=== PATIENT | male | born 1970 | race Caucasian/White ===

== ENCOUNTER 2017-03-05 22:21 | Inpatient (IN) | payer SELFPAY ==
[~2017-03-05] VITALS: Ht 157.5 cm; Wt 70.0 kg
[~2017-03-05 22:21] MED LIST: CIPR500T4 PO; METR500T PO
[2017-03-06] VITALS (12 sets, daily range): BP systolic 113–132; BP diastolic 76–89; PULSE 40–66; RESP 15–20; TEMP 97.6; Ht 157.5 cm; Wt 70.0 kg
[2017-03-06 01:08] LABS: ADD SCAN DIFF NO
[2017-03-06 01:12] LABS: BASOPHILS % 0.3 % (0.0-2.0); EOSINOPHILS % 0.6 % (0.0-7.0); HEMATOCRIT 42.1 % (42.0-52.0); HEMOGLOBIN 14.7 g/dl (14.0-18.0); LYMPHOCYTES # 1.4 10^3/ul (0.8-2.9); LYMPHOCYTES % 19.8 % (15.0-51.0); MEAN CORPUSCULAR HEMOGLOBIN 31.4 pg (29.0-33.0); MEAN CORPUSCULAR HGB CONC 34.9 g/dl (32.0-37.0); MEAN PLATELET VOLUME 10.7 fl (7.4-10.4); MONOCYTE # 0.6 10^3/ul (0.3-0.9); MONOCYTES % 8.4 % (0.0-11.0); NEUTROPHIL # 4.8 10^3/ul (1.6-7.5); NEUTROPHILS % 70.3 % (39.0-77.0); PLATELET COUNT 187 10^3/UL (140-415); RED BLOOD COUNT 4.68 10^6/ul (4.70-6.10); RED CELL DISTRIBUTION WIDTH 13.7 % (11.5-14.5); WHITE BLOOD COUNT 6.8 10^3/ul (4.8-10.8)
--- NOTE | 2017-03-06 01:13 | RADRPT ---
PROCEDURE: CT Head without. CLINICAL INDICATION: Possible stroke. TECHNIQUE: The study was performed utilizing a multi-slice, multidetector CT scanner. Direct spira l 1 mm axial sections were obtained through the head without the use of intravenous contrast materia l. 1 or more of the following dose reduction techniques were utilized: Automated exposure control, adjustment of the mA and/or kV according to patient's size, iterative reconstruction technique. Co henry and sagittal reformations were obtained. The images were reviewed on a PACS workstation. RADIATION DOSE: CTDIvol: 43.6 mGyDLP: 720.2 mGy-cm COMPARISON: No prior studies are available for comparison. FINDINGS: There is no intracranial hemorrhage, extra-axial fluid collection, mass lesion, midline shift or hyd rocephalus. The ventricles, sulci and cisterns are within normal limits. The white matter is unrem arkable. The coyle-white matter differentiation is preserved. The basal cisterns are patent. The m idline structures are intact. The orbits, calvarium and extracranial soft tissues are normal in wyatt earance. The visualized paranasal sinuses, mastoid air cells and middle ear cavities are normally ae rated. IMPRESSION: 1. No CT evidence of infarct at this time. If clinical concern for infarct, MRI is recommended for further evaluation. 2. No acute intracranial abnormality. No intracranial hemorrhage, extra-axial fluid collection, ma ss lesion or hydrocephalous. RPTAT: HGAS .Al Barrientos MD, Date Time Electronically viewed and signed by .Al Barrientos MD, on 03/06/2017 01:12 .S/
[2017-03-06 01:23] LABS: ADD UMIC YES; URINE BILIRUBIN (Dip) NEGATIVE (NEGATIVE); URINE BLOOD (Dip) 1+ (NEGATIVE); URINE COLOR LT. YELLOW (YELLOW); URINE GLUCOSE (Dip) NEGATIVE (NEGATIVE); URINE KETONES (Dip) NEGATIVE (NEGATIVE); URINE LEUKOCYTE ESTERASE (Dip) NEGATIVE (NEGATIVE); URINE NITRITE (Dip) NEGATIVE (NEGATIVE); URINE TOTAL PROTEIN (Dip) NEGATIVE (NEGATIVE); URINE UROBILINOGEN (Dip) 0.2 E.U./dL (0.1-1.0)
[2017-03-06 01:31] LABS: ANION GAP 13 (8-16); BLOOD UREA NITROGEN 25 mg/dl (7-20); CALCIUM 9.8 mg/dl (8.4-10.2); CARBON DIOXIDE 29 mmol/L (21-31); CHLORIDE 101 mmol/L (97-110); CREATININE 0.99 mg/dl (0.61-1.24); GLUCOSE 102 mg/dl (70-220); POTASSIUM 4.1 mmol/L (3.5-5.1); SODIUM 139 mmol/L (135-144)
[2017-03-06 01:46] LABS: INR 1.01; PROTIME 13.3 Sec (12.2-14.2)
[2017-03-06 01:48] LABS: CANNABINOIDS Positive (NEGATIVE)
[2017-03-06 01:51] LABS: TROPONIN-I < 0.012 ng/ml (0.00-0.12)
[2017-03-06] MEDS ORDERED: ASPIRIN 81 MG TAB ONE (01:56)
[2017-03-06 01:59] LABS: BARBITURATES Negative (NEGATIVE); BENZODIAZEPINES Negative (NEGATIVE); COCAINE Negative (NEGATIVE); OPIATES Negative (NEGATIVE)
[2017-03-06] MEDS ORDERED: ASPIRIN 81 MG TAB PO ONE (02:00)
--- NOTE | 2017-03-06 02:30 | RADRPT ---
PROCEDURE: Portable chest x-ray. CLINICAL INDICATION: Stroke. TECHNIQUE: Portable AP view of the chest. COMPARISON: None. FINDINGS: No pulmonary edema or conolidation is identified. The cardiac silhouette is magnified. No pleural effusion is seen. There is no pneumothorax. IMPRESSION: 1. No evidence of acute cardiopulmonary disease. RPTAT: HTAR .Wyatt Plunkett MD, MD Date Time Electronically viewed and signed by .Wyatt Plunkett MD, on 03/06/2017 02:29 .R/
[2017-03-06] MEDS ORDERED: ACETAMINOPHEN 325 MG TAB PO PRN (05:00)
[2017-03-06] MEDS ORDERED: ONDANSETRON 4 MG INJ IV PRN (05:00)
--- NOTE | 2017-03-06 05:08 | ERA ---
ER Documentation Chief Complaint Date/Time DATE: 03/06/17 TIME: 04:55 Chief Complaint had an anxiety attack at work stated "he couldnt talk/ react for few mins" HPI This 47-year-old male presents to the emergency room for recurrent concerning episode where he was sitting at work when he suddenly became confused and was completely unable to speak for approximately 2 minutes. At this time he also had a inability to move his left arm. Once she was able to speak and he still felt very confused. His left arm weakness and speech all resolved. Currently he has no symptoms except first feeling somewhat dizzy as in vertigo.. He has no history of stroke hypertension, diabetes or seizures. He had no chest pain or shortness of breath. ROS All systems reviewed and are negative except as per history of present illness. Medications Home Meds Active Scripts Metronidazole* (Flagyl*) 500 Mg Tablet, 500 MG PO TID for 10 Days, TAB Prov:OLIVE SANDERSON NP 07/04/16 Ciprofloxacin Hcl* (Ciprofloxacin Hcl*) 500 Mg Tablet, 500 MG PO BID, #10 TAB Prov:OLIVE SANDERSON NP 07/04/16 Allergies Allergies: Coded Allergies: No Known Allergy (Unverified , 07/03/16) PMhx/Soc History of Surgery: No Hx Miscellaneous Medical Probl: Yes (hypothyroidism) Hx Alcohol Use: Yes (social) Hx Substance Use: No Hx Tobacco Use: Yes (e-cig) Smoking Status: Current every day smoker Physical Exam Vitals Vital Signs Date Time Temp Pulse Resp B/P Pulse Ox O2 Delivery O2 Flow Rate FiO2 03/06/17 04:00 62 16 126/86 99 03/06/17 03:00 56 18 125/84 96 Nasal Cannula 2.0 03/06/17 02:00 59 17 125/80 99 Nasal Cannula 03/06/17 01:00 64 18 140/90 99 Nasal Cannula 03/06/17 00:30 63 19 120/85 94 Room Air 03/05/17 22:32 98.2 82 20 159/88 97 Physical Exam Const: [] No distress Head: Atraumatic Eyes: Normal Conjunctiva, EOMI, PERRLA ENT: Normal External Ears, Nose and Mouth. Neck: Full range of motion..~ No meningismus. Resp: Clear to auscultation bilaterally Cardio: Regular rate and rhythm, no murmurs Abd: Soft, non tender, non distended. Normal bowel sounds Skin: No petechiae or rashes Back: No midline or flank tenderness Ext: No cyanosis, or edema Neur: Awake and alert and oriented 3, cranial nerves II through XII intact, no cerebellar deficits, normal gait, 5 strength all extremities. NIH stroke scale score equals 0 Psych: Normal Mood and Affect Result Diagram: 03/06/17 0030 03/06/17 0030 Results 24 hrs Laboratory Tests Test 03/06/17 00:30 03/06/17 01:07 White Blood Count 6.810^3/ul Red Blood Count 4.6810^6/ul Hemoglobin 14.7g/dl Hematocrit 42.1% Mean Corpuscular Volume 90.0fl Mean Corpuscular Hemoglobin 31.4pg Mean Corpuscular Hemoglobin Concent 34.9g/dl Red Cell Distribution Width 13.7% Platelet Count 20101^3/UL Mean Platelet Volume 10.7fl Neutrophils % 70.3% Lymphocytes % 19.8% Monocytes % 8.4% Eosinophils % 0.6% Basophils % 0.3% Nucleated Red Blood Cells % 0.0/100WBC Neutrophils # 4.810^3/ul Lymphocytes # 1.410^3/ul Monocytes # 0.610^3/ul Eosinophils # 0.010^3/ul Basophils # 0.010^3/ul Nucleated Red Blood Cells # 0.010^3/ul Prothrombin Time 13.3Sec Prothrombin Time Ratio 1.0 INR International Normalized Ratio 1.01 Activated Partial Thromboplast Time 30.0Sec Urine Color LT. YELLOW Urine Clarity CLEAR Urine pH 7.0 Urine Specific [place] 1.010 Urine Ketones NEGATIVE Urine Nitrite NEGATIVE Urine Bilirubin NEGATIVE Urine Urobilinogen 0.2 E.U./dL Urine Leukocyte Esterase NEGATIVE Urine Microscopic RBC 2-5/HPF Urine Microscopic WBC NONE SEEN/HPF Urine Hemoglobin 1+ Urine Glucose NEGATIVE% Urine Total Protein NEGATIVE Sodium Level 139mmol/L Potassium Level 4.1mmol/L Chloride Level 101mmol/L Carbon Dioxide Level 29mmol/L Anion Gap 13 Blood Urea Nitrogen 25mg/dl Creatinine 0.99mg/dl Glucose Level 102mg/dl Hemoglobin A1c 4.8% Calcium Level 9.8mg/dl Troponin I < 0.012ng/ml Urine Opiates Screen Negative Urine Barbiturates Negative Urine Amphetamines Screen Negative Urine Benzodiazepines Screen Negative Urine Cocaine Screen Negative Urine Cannabinoids Positive Bedside Glucose 110mg/dL Current Medications Medications (Trade) Dose Ordered Sig/Latricia Route PRN Reason Start Time Stop Time Status Last Admin Dose Admin Aspirin (Aspirin) 324 mg ONCE ONCE PO 03/06/17 02:00 03/06/17 02:06 DC 03/06/17 02:07 Aspirin (Aspirin) 81 mg STK-MED ONCE .ROUTE 03/06/17 01:56 03/06/17 01:57 DC Ondansetron HCl (Zofran Inj) 4 mg ER BRIDGE PRN IV NAUSEA AND/OR VOMITING 03/06/17 05:00 03/07/17 04:59 Acetaminophen (Tylenol Tab) 650 mg ER BRIDGE PRN PO MILD PAIN/FEVER 03/06/17 05:00 03/07/17 04:59 Procedures/MDM Concerning strokelike almost completely resolved. Transient ischemic attack until proven otherwise. Patient's CT returned without any signs of hemorrhage or acute stroke and was given a 325 mg aspirin. Cardiac workup was negative for ischemia. Patient has remained stable on the monitor. He will be admitted for another monitoring and neurological workup with likely MRI. Not a TPA candidate because of quickly resolving symptoms. Spoke with Dr. Rosalba Deluca will be admitting the patient to telemetry. EKG interpretation: Normal sinus rhythm, normal axis, no ST or T-wave changes concerning for acute ischemia. 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 Departure Diagnosis: Primary Impression: TIA (transient ischemic attack) Condition: Stable MARK SPAULDING DO Mar 06, 2017 05:05
--- NOTE | 2017-03-06 05:09 | HP ---
Date/Time of Note Date/Time of Note DATE: 03/06/17 TIME: 05:08 Assessment/Plan VTE Prophylaxis VTE Prophylaxis Intervention: other (Lovenox) Assessment/Plan Assessment/Plan 1) TIA (transient ischemic attack) - Admit to Med/Surg - Carotid Duplex - Echocardiogram - AM Labs: CHD Panel - If negative work-up, expect DC Home tomorrow and follow-up with his PCP. HPI/ROS Admit Date/Time Admit Date/Time 03/06/17 0431 Hx of Present Illness This 47-year-old male presents to the emergency room for recurrent concerning episode where he was sitting at work when he suddenly felt weird and was completely unable to speak though he said he knew the words he wanted to say. At this time, he also had a inability to move his left arm and leg. He states that he could hear and see people the entire time, but that he was somewhat disconnected from his body and the voces of the people were distant. Once she was able to speak and he still felt very weird. His left arm weakness and speech all resolved though he feels like his mouth is still not moving right, like his lips are pulled tight from each side (lateral traction at the corners of his mouth bilaterally - he demonstrates this). Currently, he denies headache , vision changes, dizziness, tinnitus, chest pain, palpitations, SOB, nausea, vomiting, extremity weakness. He denies numbness, tingling or shooting pains.. He has no history of stroke hypertension, diabetes or seizures. ER Course per ER Physician: Patient's CT returned without any signs of hemorrhage or acute stroke and was given a 325 mg aspirin. Cardiac workup was negative for ischemia. Patient has remained stable on the monitor. He will be admitted for another monitoring and neurological workup with likely MRI. Not a TPA candidate because of quickly resolving symptoms. ROS General: Admits: Denies: Fever, Chills, Poor Appetite, Generalized Body Aches Eyes: Admits: Denies: Blurry Vision, Double Vision HENT: Admits: Denies: Ear Pain/Pressure, Runny/Stuffy Nose, Sore Throat Cardiovascular: Admits: Denies: Chest Pain, Palpitations, Leg Swelling Pulmonary: Admits: Denies: Cough, Wheeze, Shortness of Breath Gastrointestinal: Admits: Denies: Abdominal Pain, Nausea, Vomiting, Diarrhea, Blood in Stool, Black-Colored Stool Urogenital: Admits: Denies: Burning with Urination, Urinary Frequency, Blood in Urine Musculoskeletal: Admits: Denies: Joint Pain, Joint Swelling, Muscle Pain Neurological: Admits: Denies: Headache, Dizziness, Numbness, Tingling, Shooting Pains Integumentary: Admits: Denies: Rash, Itch PMH/Family/Social Past Medical History Hypothyroidism Past Surgical History Past Surgical Hx: no surgical history Social History Alcohol Use: other (socially) Smoking Status: Current every day smoker (e-cigarettes) Exam/Review of Systems Vital Signs Vitals Vital Signs Date Time Temp Pulse Resp B/P Pulse Ox O2 Delivery O2 Flow Rate FiO2 03/06/17 05:00 97.6 64 17 123/87 100 Nasal Cannula 2.0 Exam Exam General: Petite male, speaks/understands [place] well, alert and oriented, in no acute distress, lying in his bed on the Telemetry Unit. Eyes: Sclera White, EOMI HENT: Normocephalic/Atraumatic, External Ears/Nose Normal, Moist Mucus Membranes Neck: Supple, Trachea Midline Cardiovascular: Normal Rate, Regular Rhythm, Normal S1 and S2, No Murmur, No Extra Sounds. Radial pulse +2/4. No pedal Edema. Pulmonary: Clear to Auscultation Bilaterally, Normal Respiratory Effort, No Rales, Rhonchi or Wheezes Gastrointestinal: Normoactive Bowel Sounds, Soft, Non-Tender/Non-Distended, No Hepatosplenomegaly Appreciated, No Pulsatile Masses Urogenital: Deferred Musculoskeletal: Normal Muscle Bulk and Tone Neurological: CN II - XII Intact. His face is even, but there is something unusual in the way his mouth moves when he speaks. Non-Focal, Speech Normal Bilateral upper and lower extremity strength +5/5, bilateral biceps brachii and patellar DTRs +2/4 and equal bilaterally Integumentary: Normal Moisture and Temperature, Good Turgor, No Jaundice, No Rash Lymphatic: No Cervical Lymphadenopathy Psychiatric: Appropriate Mood and Affect, Good Eye Contact Labs Result Diagram: 03/06/172903/06/1729 Medications Medications Home Meds Active Scripts Metronidazole* (Flagyl*) 500 Mg Tablet, 500 MG PO TID for 10 Days, TAB Prov:OLIVE SANDERSON NP 07/04/16 Ciprofloxacin Hcl* (Ciprofloxacin Hcl*) 500 Mg Tablet, 500 MG PO BID, #10 TAB Prov:OLIVE SANDERSON [employer]YCLING [employer] SUPER[employer]OR 07/04/16 Current Medications Medications (Trade) Dose Ordered Sig/Latricia Route PRN Reason Start Time Stop Time Status Last Admin Dose Admin Aspirin (Aspirin) 324 mg ONCE ONCE PO 03/06/17 02:00 03/06/17 02:06 DC 03/06/17 02:07 Aspirin (Aspirin) 81 mg STK-MED ONCE .ROUTE 03/06/17 01:56 03/06/17 01:57 DC Ondansetron HCl (Zofran Inj) 4 mg ER BRIDGE PRN IV NAUSEA AND/OR VOMITING 03/06/17 05:00 03/07/17 04:59 Acetaminophen (Tylenol Tab) 650 mg ER BRIDGE PRN PO MILD PAIN/FEVER 03/06/17 05:00 03/07/17 04:59 Procedures Procedures Laboratory Tests Test 03/06/17 00:30 03/06/17 01:07 White Blood Count 6.810^3/ul Red Blood Count 4.6810^6/ul Hemoglobin 14.7g/dl Hematocrit 42.1% Mean Corpuscular Volume 90.0fl Mean Corpuscular Hemoglobin 31.4pg Mean Corpuscular Hemoglobin Concent 34.9g/dl Red Cell Distribution Width 13.7% Platelet Count 43843^3/UL Mean Platelet Volume 10.7fl Neutrophils % 70.3% Lymphocytes % 19.8% Monocytes % 8.4% Eosinophils % 0.6% Basophils % 0.3% Nucleated Red Blood Cells % 0.0/100WBC Neutrophils # 4.810^3/ul Lymphocytes # 1.410^3/ul Monocytes # 0.610^3/ul Eosinophils # 0.010^3/ul Basophils # 0.010^3/ul Nucleated Red Blood Cells # 0.010^3/ul Prothrombin Time 13.3Sec Prothrombin Time Ratio 1.0 INR International Normalized Ratio 1.01 Activated Partial Thromboplast Time 30.0Sec Urine Color LT. YELLOW Urine Clarity CLEAR Urine pH 7.0 Urine Specific [place] 1.010 Urine Ketones NEGATIVE Urine Nitrite NEGATIVE Urine Bilirubin NEGATIVE Urine Urobilinogen 0.2 E.U./dL Urine Leukocyte Esterase NEGATIVE Urine Microscopic RBC 2-5/HPF Urine Microscopic WBC NONE SEEN/HPF Urine Hemoglobin 1+ Urine Glucose NEGATIVE% Urine Total Protein NEGATIVE Sodium Level 139mmol/L Potassium Level 4.1mmol/L Chloride Level 101mmol/L Carbon Dioxide Level 29mmol/L Anion Gap 13 Blood Urea Nitrogen 25mg/dl Creatinine 0.99mg/dl Glucose Level 102mg/dl Hemoglobin A1c 4.8% Calcium Level 9.8mg/dl Troponin I < 0.012ng/ml Urine Opiates Screen Negative Urine Barbiturates Negative Urine Amphetamines Screen Negative Urine Benzodiazepines Screen Negative Urine Cocaine Screen Negative Urine Cannabinoids Positive Bedside Glucose 110mg/dL EKG: Interpretation by ER Physician: Normal sinus rhythm, normal axis, no ST or T-wave changes concerning for acute ischemia. Normal EKG RADIOLOGY: PROCEDURE: CT Head without. CLINICAL INDICATION: Possible stroke. COMPARISON: No prior studies are available for comparison. IMPRESSION: 1. No CT evidence of infarct at this time. If clinical concern for infarct, MRI is recommended for further evaluation. 2. No acute intracranial abnormality. No intracranial hemorrhage, extra-axial fluid collection, mass lesion or hydrocephalous. PROCEDURE: Portable chest x-ray. CLINICAL INDICATION: Stroke. TECHNIQUE: Portable AP view of the chest. COMPARISON: None. FINDINGS: No pulmonary edema or consolidation is identified. The cardiac silhouette is magnified. No pleural effusion is seen. There is no pneumothorax. IMPRESSION: 1. No evidence of acute cardiopulmonary disease. MANA RUSS DO Mar 06, 2017 05:09 Ondansetron HCl (Zofran Inj) 4 mg ER BRIDGE PRN IV NAUSEA AND/OR VOMITING 03/06/17 05:00 03/07/17 04:59 Acetaminophen (Tylenol Tab) 650 mg ER BRIDGE PRN PO MILD PAIN/FEVER 03/06/17 05:00 03/07/17 04:59 MANA RUSS DO Mar 06, 2017 05:09
[2017-03-06] MEDS ORDERED: NACL 0.9% 3 ML SYG IV SCH (08:30)
[2017-03-06] MEDS ORDERED: ONDANSETRON 4 MG TAB PO PRN (08:30)
[2017-03-06] MEDS ORDERED: NITROGLYCERIN (SL) 0.4 MG TAB SL PRN (08:30)
[2017-03-06] MEDS: FAMOTIDINE 20 MG TAB PO SCH ×2 (09:18→20:38)
[2017-03-06] MEDS: ENOXAPARIN 40 MG/0.4 ML SYG SC SCH (09:20)
--- NOTE | 2017-03-06 12:02 | RADRPT ---
PROCEDURE: US Carotids. CLINICAL INDICATION: bruit , TIA TECHNIQUE: Multiple sonographic of the carotid bifurcation region and vertebral arteries were obta ined utilizing coyle scale, duplex and color-flow imaging. The images were reviewed on a PACS worksta tion. COMPARISON: No prior studies are available for comparison. FINDINGS: Evaluation of the right carotid bifurcation region reveals no significant calcific atherosclerotic d isease. Evaluation of the left carotid bifurcation region reveals no significant calcific atherosclerotic di sease. There is antegrade flow within the vertebral arteries bilaterally. RIGHT CAROTID MEASUREMENTS: Common Carotid Pcomtl17.5 (cm/sec) Internal Carotid Artery - ajaiwzko42.5 (cm/sec) Internal Carotid Artery - mid48.3 (cm/sec) Internal Carotid Artery - pumlpg38.6 (cm/sec) Internal Carotid/Common Carotid0.82 LEFT CAROTID MEASUREMENTS: Common Carotid Aaoeet40.4 (cm/sec) Internal Carotid Artery - nfpkzlhe28.1 (cm/sec) Internal Carotid Artery - mid48.3 (cm/sec) Internal Carotid Artery - .5 (cm/sec) Internal Carotid/Common Carotid0.67 RPTAT: AA IMPRESSION: No evidence for hemodynamically significant stenosis in the bilateral internal carotid arteries - va lidated velocity measurements with angiographic measurements, velocity criteria are extrapolated fro m diameter data as defined by the Society of Radiologists in Ultrasound Consensus Conference Radiolo gy 2003; 229;340-346. This study does indirectly reference the measurement of the distal ICA diamet er as the denominator for stenosis measurement. Normal antegrade flow in the vertebral arteries bilaterally. .Rj Hayes MD, Date Time Electronically viewed and signed by .Rj Hayes MD, MD on 03/06/2017 12:01 .S/
--- NOTE | 2017-03-06 16:55 | RADRPT ---
Echocardiogram Report Patient Name: LUZ MARIA MEDEROS Gender: Male Date: 1970 Study Date: 06-Mar-2017 Etl Programmer: [facility] Location: I Ref. Physician: MANA RUSS Quality: Adequate Procedures: Transthoracic echocardiogram with complete 2D, M-Mode, and doppler examination. Indications: Transient Ischemic Attack. 2D/M Mode Doppler Measurement Value Normal Ranges Measurement Value Normal Ranges LVIDd 2D 4.6 3.5 - 5.6 cm AV Peak [place] 1.3 m/sec LVIDs 2D 2.9 2.1 - 4.1 cm AV Peak PG 6.6 mmHg LVPWd 2D 1.1 0.6 - 1.1 cm LVOT Peak [place] 1.2 m/sec IVSd 2D 1.0 0.6 - 1.1 cm LVOT Peak PG 5.8 mmHg AoR Diam 2D 2.7 2.0 - 3.7 cm MV E Peak [place] 0.8 m/sec EDV 2D 99.6 cm3 MV A Peak [place] 0.7 m/sec ESV 2D 23.6 cm3 MV E/A 1.1 MV Decel Time [address] 4 MV E/A 1.1 TR Peak [place] 2.3 m/sec TR Peak PG 20.6 mmHg Findings Left Ventricle: Normal left ventricular systolic function. Normal left ventricular cavity size. Normal left ventricular wall thickness. Ejection fraction is visually estimated at 65 %. Right Ventricle: Normal right ventricular size. Normal right ventricular systolic function. Left Atrium: The left atrium is normal in size. Right Atrium: The right atrium is normal in size. Mitral Valve: Normal appearance and function of the mitral valve with trace physiologic regurgitation. Aortic Valve: Normal appearance of the aortic valve. No significant aortic stenosis or insufficiency. Tricuspid Valve: Normal appearance and function of the tricuspid valve with trace physiologic regurgitation. Estimated peak PA systolic pressure 24 mmHg. Pulmonic Valve: There is mild pulmonic regurgitation. Pericardium: Normal pericardium with no significant pericardial effusion. Aorta: Normal aortic root. IVC: Normal size and normal respiratory collapse consistent with normal right atrial pressure. Conclusions 1.Normal left ventricular systolic function. Normal left ventricular cavity size. Normal left ventricular wall thickness. Ejection fraction is visually estimated at 65 %. 2.Normal right ventricular size. Normal right ventricular systolic function. 3.The left atrium is normal in size. 4.The right atrium is normal in size. 5.No significant valvular stenosis or regurgitation seen. 6.Normal pericardium with no significant pericardial effusion. Electronically Signed By: Jovani Lynch 06-Mar-2017 16:53:35 -0700 Patient Name: LUZ MARIA MEDEROS Study Date: 06-Mar-2017 [id number]
[2017-03-07] VITALS (8 sets, daily range): BP systolic 105–127; BP diastolic 61–83; PULSE 48–57; RESP 15–20
[2017-03-07 07:24] LABS: CHOL/HDL RATIO 4.5 RATIO
--- NOTE | 2017-03-07 09:29 | PDOCDIS ---
Discharge Instructions CONDITION Patient Condition: Good HOME CARE INSTRUCTIONS: Diet Instructions: Regular ACTIVITY: Activity Restrictions: No Restrictions FOLLOW UP/APPOINTMENTS Appointments F/U WITH YOUR PCP IN 1-2 WEEKS DIANA WHYTE Mar 07, 2017 09:29
[2017-03-07] MEDS: FAMOTIDINE 20 MG TAB PO SCH (10:28)
[2017-03-07] MEDS: ENOXAPARIN 40 MG/0.4 ML SYG SC SCH (10:29)
--- NOTE | 2017-03-08 02:55 | DS ---
DATE OF ADMISSION: 03/06/2017 DATE OF DISCHARGE: 03/07/2017 DISCHARGE DIAGNOSIS: Transient ischemic attack, unclear cause. The patient's symptoms resolved. N o findings on workup. HOSPITAL COURSE: The patient is a 47-year-old male with no past medical history. The patient prese nts with symptoms of aphasia as well as left arm weakness as well as left leg weakness. The patient only states that he smokes marijuana. His workup during this hospital was negative for diabetes, d yslipidemia. Blood pressure was also stable. His carotid Doppler study showed no evidence for sign ificant stenosis. His 2D echo showed normal EF. There was no significant valvular stenosis or regu rgitation. The patient's symptoms completely resolved. Of note, his tox only showed positive canna binoids. The patient denies any amphetamine use. Day of discharge, the patient's vital signs, labs , physical exam were stable. Once again, his symptoms had completely resolved. He had no acute com plaints. Questions were answered. CONDITION ON DISCHARGE: Stable. DISPOSITION: To home. MEDICATIONS: No medications prescribed. FOLLOWUP: The patient to follow up with his PCP in 1 to 2 weeks. Greater than 30 minutes was spent coordinating discharge of patient. Dictated By: DIANA NICOLE/CASSI Conf#: [id number] DID#: [id number]
== END 2017-03-07 12:40 | disposition home or self-care (01) | DRG 69 ==
LOC: FTE 22:21 → TEL 03-06 04:32
PROVIDERS: ADMIT Family Medicine; ATTEND Family Medicine
DX: G45.9 Transient cerebral ischemic attack, unspecified (principal); G81.94 Hemiplegia, unspecified affecting left nondominant side; R47.01 Aphasia; E03.9 Hypothyroidism, unspecified; F12.90 Cannabis use, unspecified, uncomplicated
CPT/HCPCS: 36415; 70450; 71010; 80048; 80061; 80307; 81001; 81003; 82962; 83036; 84484; 85025; 85610; 85730; 93005; 93306; 93880; J1650

== ENCOUNTER 2018-03-21 11:22 | Emergency (ER) | END 2018-03-21 15:55 | disposition home or self-care (01) ==

== ENCOUNTER 2019-07-24 16:17 | Observation (INO) | payer MEDICAID, OTHER ==
[~2019-07-24] VITALS: Ht 160 cm; Wt 77.7 kg
[~2019-07-24 16:17] MED LIST changes: +ASPI325T32 PO; +FENO145T37 PO; +LEVO125T71 PO; +NYST1000 PO
[2019-07-24] MEDS ORDERED: ASPIRIN 325 MG TAB PO ONE (17:00)
[2019-07-24] MEDS ORDERED: NACL 0.9% 3 ML SYG IV SCH (19:30)
[2019-07-24] MEDS ORDERED: ONDANSETRON 4 MG INJ IV PRN ×2 (19:30)
[2019-07-24] MEDS ORDERED: hydrALAzine 20 MG INJ IV PRN (19:30)
[2019-07-24] MEDS ORDERED: LORAZEPAM 2 MG INJ IV PRN (19:30)
[2019-07-24] MEDS ORDERED: morphine 2 MG INJ IV PRN (19:30)
[2019-07-24] MEDS ORDERED: ALBUTEROL/IPRATROPIUM (NEB) 3 ML AMP HHN PRN (19:30)
[2019-07-24] MEDS ORDERED: NITROGLYCERIN (SL) 0.4 MG TAB SL PRN (19:30)
[2019-07-24] MEDS ORDERED: HYDROCODONE/APAP (5/325) TAB PO PRN (19:30)
[2019-07-24] MEDS ORDERED: DOCUSATE SODIUM 100 MG CAP PO PRN (19:30)
[2019-07-24] MEDS ORDERED: MAGNESIUM HYDROXIDE 30ML CUP PO PRN (19:30)
[2019-07-24] MEDS ORDERED: ACETAMINOPHEN 325 MG TAB PO PRN ×2 (19:30)
[2019-07-24 20:00] VITALS: Ht 160 cm; Wt 77.7 kg
[2019-07-24] MEDS: SOD CHLORIDE 0.45% 1,000 ML IV SCH (22:51)
[2019-07-25 00:07] VITALS: BP 134/87; PULSE 60; RESP 18
[2019-07-25 04:54] VITALS: BP 131/84; PULSE 64; RESP 18
[2019-07-25] MEDS: LEVOTHYROXINE 125 MCG TAB PO SCH (06:22)
[2019-07-25 07:20] VITALS: BP 116/76; PULSE 52; RESP 19
[2019-07-25] MEDS: ASPIRIN (EC) 325 MG TAB PO SCH (08:32)
[2019-07-25] MEDS: SOD CHLORIDE 0.45% 1,000 ML IV SCH (08:32)
[2019-07-25 11:30] VITALS: BP 134/93; PULSE 81; RESP 20
[2019-07-25] MEDS ORDERED: EMTRICITABINE/TENOFOVIR TAB PO SCH (12:30)
[2019-07-25] MEDS: FENOFIBRATE 145 MG TAB PO SCH (13:58)
[2019-07-25 15:05] VITALS: BP 138/90; PULSE 63; RESP 20
[2019-07-25 19:45] VITALS: BP 139/90; PULSE 57; RESP 19
[2019-07-26 00:23] VITALS: BP 117/75; PULSE 52; RESP 19
[2019-07-26 04:37] VITALS: BP 120/70; PULSE 57; RESP 19
[2019-07-26] MEDS: LEVOTHYROXINE 125 MCG TAB PO SCH (06:54)
[2019-07-26 07:26] VITALS: BP 123/80; PULSE 53; RESP 20
[2019-07-26] MEDS: ASPIRIN (EC) 325 MG TAB PO SCH (08:43)
[2019-07-26] MEDS: FENOFIBRATE 145 MG TAB PO SCH (08:43)
[2019-07-26] MEDS ORDERED: LEVOTHYROXINE 100 MCG TAB PO SCH (09:00)
[2019-07-26] MEDS ORDERED: TIVICAY 50 MG TABLET PO SCH (09:00)
[2019-07-26] MEDS ORDERED: DESCOVY PO SCH (09:00)
[2019-07-26 11:38] VITALS: BP 136/86; PULSE 54; RESP 19
== END 2019-07-26 19:00 | disposition home or self-care (01) ==
LOC: E/R 16:17 → TEL 19:23
PROVIDERS: ADMIT Internal Medicine; ATTEND Internal Medicine
DX: R41.0 Disorientation, unspecified (principal); R47.81 Slurred speech; E78.1 Pure hyperglyceridemia; E03.9 Hypothyroidism, unspecified; Z87.891 Personal history of nicotine dependence; Z86.73 Personal history of transient ischemic attack (TIA), and cerebral infarction without residual deficits
CPT/HCPCS: 36415; 70450; 70551; 71045; 80048; 80061; 80307; 81003; 82550; 82553; 83036; 83735; 84100; 84439; 84443; 84484; 85025; 85610; 85651; 85730; 86360; 86592; 87536; 92610; 93005; 93306; 93880; 97161; 97166; X4300; Z7500; Z7502; Z7610; 92523; G0378